=== PATIENT | female | born 1970 | race Caucasian/White ===

== ENCOUNTER 2023-06-27 16:03 | Outpatient (AMB) | payer BC, SELFPAY ==
--- NOTE | 2023-06-27 16:19 | MHC.PC.OV ---
Vital Signs 06/27/23 16:20 Height 5 ft Weight 160 lb BMI 31.2 BP 132/90 H Blood Pressure Location Rt brachial Position Sitting Pulse 96 Pulse Source Pulse Oximeter Pulse Oximetry (%) 99 Oxygen Delivery Method Room Air Intake Visit Reasons: NPV/requesting phy Intake Note: Pt is here to est care Allergies No Known Allergies [No Known Allergies*] Allergy (Unverified 06/27/23 16:21) Medication List - Last Reconciled 06/27/23 by KIRSTY Magdaleno tirzepatide (Mounjaro) 15 mg subcut QWEEK valacyclovir 1,000 mg PO DAILY Tobacco use date assessed: 06/27/23 Dental Screening Dental Screen Date: 06/27/23 Did you have a dental visit in the last 12 months?: No Did you have a dental problem in the last 6 months where you did not have access to dental care?: No Was dental information given to patient?: No HPI NPV/requesting phy HPI Details New pt is here for a PE. Will order labs. Colonoscopy is up to date according to pt. Mammo is scheduled. Has a health center manager. Pt's blood pressure is elevated today. Will have pt monitor her blood pressure at home and record readings. Denies chest pain, shortness of breath, headache, dizziness, and blurred vision. [facility] Social History Housing: House Patient Tobacco Use Status: Never used Tobacco e-Cigarette/Vaping Use: Never Used service: No Current occupational status: employed Current occupation: [employer] Current occupational exposures/hazards: No Cognitive needs: No Hearing needs: No Vision needs: No Questionnaire PHQ-9 Over the last 2 weeks, how often have you been bothered by any of the following problems? 1. Little interest or pleasure in doing things: not at all 2. Feeling down, depressed, or hopeless: not at all 3. Trouble falling or staying asleep, or sleeping too much: not at all 4. Feeling tired or having little energy: not at all 5. Poor appetite or overeating: not at all 6. Feeling bad about yourself - or that you are a failure or have let yourself or your family down: not at all 7. Trouble concentrating on things, such as reading the newspaper or watching television: not at all 8. Moving or speaking so slowly that other people could have noticed. Or the opposite - being so fidgety or restless that you have been moving around a lot more than usual: not at all 9. Thoughts that you would be better off or of hurting yourself in some way: not at all Total score: 0 Depression Screening Interpretation: Negative Depression Screening Done: Yes 79353 - PHQ-9 Billing: Yes Source: Developed by Drs. Norberto Myers, Mimi Bansal, José Luis Peng and colleagues, with an educational cristy from [employer]. Thrive Questionnaire Date Thrive assessed: 06/27/23 I am a: Patient What is your living situation today?: I have a steady place to live Within the past 12 months, did the food you bought not last and you didn't have the money to get more?: Never true Within the past 12 months, did you worry whether your food would run out before you got money to buy more?: Never true Do you have trouble paying for medicines?: No Do you have trouble getting transportation to medical appointments?: No Do you have trouble paying your heating and electricity bill?: No Do you have trouble taking care of your child, family member or friend?: No Do you have trouble with day-to-day activities such as bathing, preparing meals, shopping, managing finances, etc.?: No Are you currently unemployed and looking for a job?: No Are you interested in more education?: No Please select the resources that you would like help with: None Currently or been in a relationship where the following occur: no concerns reported THRIVE Score: 0 AUDIT C Alcohol Use Questionnaire (AUDIT-C) 1. How often do you have a drink containing alcohol?: Monthly or less 2. How many drinks containing alcohol do you have on a typical day when you are drinking?: 1 or 2 3. How often do you have six or more drinks on one occasion?: Never Total Score: 1 Score Reviewed/Action Taken: Yes RENEE-7 AMB Questionnaire RENEE-7 Date RENEE - 7 assessed: 06/27/23 Feeling nervous, anxious, or on edge: 0 = Not at all Not being able to stop or control worryin = Not at all Worrying too much about different things: 0 = Not at all Trouble relaxin = Not at all Being so restless that it is hard to sit still: 0 = Not at all Becoming easily annoyed or irritable: 0 = Not at all Feeling afraid as if something awful might happen: 0 = Not at all Total RENEE-7 score (0-4 normal; 5-9 mild; 10-14 moderate; 15-21 severe): 0 Source: Developed by Drs. Norberto Myers, Mimi Bansal, José Luis Peng and colleagues, with an educational cristy from [employer]. RENEE-7 Assessment Billing RENEE-7 Assessment Tool: RENEE-7 Assessment 52090 Review of Systems Const Denies chills and Denies fever(s) Eyes Denies blurry vision ENT Denies vertigo, Denies dizziness and Denies sore throat Card Denies chest pain at rest, Denies chest pain with activity, Denies diaphoresis, Denies dyspnea and Denies dyspnea on exertion Resp Denies cough, Denies dyspnea, Denies dyspnea on exertion and Denies wheezing GI Denies abdominal pain, Denies melena, Denies hematochezia, Denies constipation, Denies diarrhea and Denies loose stools Denies hematuria Musc Denies numbness and Denies tingling Skin/Breast Denies lesions Neuro Denies vertigo, Denies dizziness, Denies numbness and Denies tingling Psych Denies anxiety, Denies depression, Denies homicidal ideation, Denies suicidal ideation and Denies other (substance abuse) Aller/Immun Denies wheezing Physical exam (Primary Care) Vital Signs: Last Vital Signs Pulse 96 06/27/23 16:20 BP 132/90 H 06/27/23 16:20 Pulse Ox 99 06/27/23 16:20 Oxygen Delivery Method Room Air 06/27/23 16:20 BMI result Body Mass Index 31.2 Tobacco/Smoking Status: Tobacco use Status Tobacco use date assessed 06/27/23 06/27/23 16:26 Patient Tobacco Use Status Never used Tobacco 06/27/23 16:26 e-Cigarette/Vaping Use Never Used 06/27/23 16:26 PHQ-9: PHQ-9 Score PHQ-9: Total score 0 06/27/23 16:59 Depression Screening Interpretation: Negative Thrive Assessment: Date of Thrive Assessment Date Thrive assessed 06/27/23 06/27/23 16:28 Currently or been in a relationship where the following occur: no concerns reported Const General: cooperative Nutritional Appearance: obese Orientation/consciousness: patient oriented x3 HENMT Head: Yes normal to inspection, Yes normocephalic and Yes atraumatic Ears: TM's normal bilaterally Eyes General: appearance normal, both eyes and all related structures Alignment and Position: alignment normal and position normal Neck Neck: Yes normal visual inspection and Yes no lymphadenopathy Thyroid: Thyroid normal Resp Effort & Inspection: normal respiratory effort Auscultation: clear to auscultation bilaterally Cardio Rate: regular rate Rhythm: regular rhythm Heart sounds: S1 normal heart sound present, S2 normal heart sound present and no murmurs GI Palpation (GI): Soft to palpation and nontender Auscultation: normal bowel sounds Skin Other: several round lesions to back ranging from skin colored to darker, some more papular and some more macular Rashes: no rashes Neuro General: patient oriented x3, moves all extremities, no focal motor deficits and deep tendon reflexes 2+ bilaterally Romberg Test: Negative Psych Appearance: grossly normal Mental Status: mental status grossly normal Speech and movement: Normal speech and movement present Affect: normal affect Attitude: cooperative Thought process: Normal thought process present Thought content: Normal thought content present Insight: Good insight present (Psych) Judgement: Good judgement present (Psych) Assessment and Plan Assessment & Plan (1) Physical exam: Code(s): Z00.00 - Encounter for general adult medical examination without abnormal findings (2) Skin lesions, generalized: Code(s): L98.9 - Disorder of the skin and subcutaneous tissue, unspecified Plan The patient agreed to the use of a pediatric medical assistant for this encounter. Scribed for KIRSTY Garcia by Emely Masterson pediatric medical assistant, on 06/27/2023 at 16:40 EST. Orders: Orders Complete Blood Count Auto Diff Today Z00.00 - Encounter for general adult medical examination without abnormal findings Comprehensive [place]. Panel Fast Today Z00.00 - Encounter for general adult medical examination without abnormal findings TSH reflex Free T4 Today Z00.00 - Encounter for general adult medical examination without abnormal findings UA CC w/rflx Micro + Cult Today Z00.00 - Encounter for general adult medical examination without abnormal findings Lipid Panel Today Z00.00 - Encounter for general adult medical examination without abnormal findings Hemoglobin A1c Today Z00.00 - Encounter for general adult medical examination without abnormal findings Vitamin D 25-OH Total Today L98.9 - Disorder of the skin and subcutaneous tissue, unspecified Referrals Dermatology Referral L98.9 - Disorder of the skin and subcutaneous tissue, unspecified Coding Level of Care Code New Pt Prev Care 40-64y(80206) Diagnoses Physical exam Z00.00 Skin lesions, generalized L98.9 Additional Codes RENEE-7 Assessment Billing - RENEE-7 Assessment Tool: RENEE-7 Assessment 91010 ([id number])
[2023-06-27 16:20] VITALS: BP 132/90; PULSE 96; O2SAT 99; BMI 31.2
== END 2023-06-27 17:21 | disposition home or self-care (01) ==
PROVIDERS: Visit Provider Nurse Practitioner Family
DX: Z00.00 Encounter for general adult medical examination without abnormal findings (principal); L98.9 Disorder of the skin and subcutaneous tissue, unspecified
CPT/HCPCS: 99386

== ENCOUNTER 2023-07-20 07:26 | Outpatient (REF) | payer BC, SELFPAY ==
[2023-07-20 11:24] LABS: MANUAL DIFF FLAG NO
[2023-07-20 11:27] LABS: Appearance Urine Cloudy; Color Urine Yellow; Glucose Urine UA Negative (Negative); Leukocyte Esterase Urine Trace (Negative); Nitrite Urine Negative (Negative); PH 5.5 (5.0-9.0); Specific Gravity - Urine 1.025 (1.005-1.025); UMIC TRIGGER UACC YES; Urine Blood Negative (Negative); Urine Ketones Negative (Negative); Urine Protein Negative (Neg-Trace)
[2023-07-20 11:32] LABS: Basophils Percent Auto 0.4 % (0-2); Eosinophils Absolute Auto 0.4 X10*3/uL (0.0-0.4); Eosinophils Percent Auto 5.4 % (0-4); Hematocrit 40.9 % (37.0-47.0); Hemoglobin 13.4 g/dl (12.0-16.0); Imm Gran Abs Auto 0.01 X10*3/uL (0.00-0.03); Imm Gran Pct Auto 0.1 % (0.0-0.4); Lymphocytes Absolute Auto 2.4 X10*3/uL (1.2-4.9); Lymphocytes Percent Auto 32.6 % (20-40); Mean Corpuscular HGB Conc 32.8 g/dl (31.0-35.0); Mean Corpuscular Hemoglobin 30.6 pg (27.0-33.0); Mean Corpuscular Volume 93.4 fL (80.0-98.0); Mean Platelet Volume 10.2 fL (9.4-12.3); Monocytes Absolute Auto 0.5 X10*3/uL (0.1-1.2); Monocytes Percent Auto 7.3 % (2-11); Neutrophils Absolute Auto 3.9 x10*3/uL (2.0-8.3); Neutrophils Percent Auto 54.2 % (45-73); Platelet Count 291 X10*3/uL (160-400); Red Blood Count 4.38 X10*6/uL (4.20-5.50); Red Cell Distribution Width 14.8 % (11.0-16.0); White Blood Count 7.3 X10*3/uL (4.8-10.8)
[2023-07-20 11:36] LABS: Bacteria Urine 4+ (None Seen); Hyaline Casts Urine 0-2 /LPF (0-2); RBC Urine 0-2 /HPF (0-2); UACC Culture Trigger YES
[2023-07-20 11:52] LABS: Estimated Average Glucose 85 mg/dL; Hemoglobin A1c % 4.6 % (<6.0)
[2023-07-20 12:10] LABS: Alanine Aminotransferase 42 U/L (0-31); Albumin Level 4.1 g/dL (3.5-5.0); Alkaline Phosphatase 67 U/L (39-117); Anion Gap 8 (12-20); Aspartate Amino Transferase 21 U/L (5-31); Bilirubin Total 0.2 mg/dL (0.0-1.0); Blood Urea Nitrogen 16 mg/dL (9-16); Calcium 9.1 mg/dL (8.4-10.2); Carbon Dioxide 29 mmol/L (22-29); Chloride 106 mmol/L (96-108); Cholesterol 208 mg/dL (<200); Estimated Glomerular Filt Rate > 60; Glucose Fasting 85 mg/dL (60-99); HDL Cholesterol 58 mg/dL (>40); LDL Cholesterol Calculated 130 mg/dL (<100); Potassium 4.1 mmol/L (3.3-5.1); Sodium 139 mmol/L (135-145); Total Protein 6.9 g/dL (6.5-8.0); Triglycerides 100 mg/dL (<150)
[2023-07-20 12:15] LABS: TSH reflex Free T4 2.25 uIU/mL (0.32-4.0); Vitamin D 25-OH Total 38.4 ng/mL (>30)
== END 2023-07-20 07:27 | disposition home or self-care (01) ==
LOC: HO.HMGCLDS 07:26
PROVIDERS: PCP Nurse Practitioner Family; Visit Provider Nurse Practitioner Family
DX: Z00.00 Encounter for general adult medical examination without abnormal findings (principal); L98.9 Disorder of the skin and subcutaneous tissue, unspecified; R82.90 Unspecified abnormal findings in urine
CPT/HCPCS: 36415; 80053; 80061; 81001; 82306; 83036; 84443; 85025; 87086

== ENCOUNTER 2023-08-02 09:47 | Outpatient (REF) | payer BC, SELFPAY ==
--- NOTE | ~2023-08-02 | US_ITS ---
EXAMINATION: US ABDOMEN COMPLETE CLINICAL INFORMATION: Elevated liver enzymes. COMPARISON: CT abdomen and pelvis 09/26/2018. TECHNIQUE: Real-time imaging of the abdominal viscera. Limited visualization due to bowel gas. FINDINGS: PANCREAS: Limited visualization of pancreatic tail and head. Imaged portion of pancreatic body is unremarkable. ABDOMINAL AORTA: Nonaneurysmal. INFERIOR VENA CAVA: Visualized portions are normal. LIVER: Increased hepatic parenchymal heterogeneity and echogenicity could be associated with hepatocellular disease/hepatic steatosis and substantially limits visualization. Correlation with liver function tests and clinical exam recommended to determine further management. GALLBLADDER: Gallbladder wall thickness of 2 mm. Echogenic shadowing areas in the region of the gallbladder fundus may represent adenomyomatosis, although limited visualization. COMMON BILE DUCT: Normal in caliber measuring 0.6 cm in diameter. RIGHT KIDNEY: A 4 mm lower pole calculus. No hydronephrosis. Possible duplicated renal collecting system. Limited visualization. The kidney measures 14.1 cm in maximum dimension. LEFT KIDNEY: No hydronephrosis. No renal calculi. Limited visualization. No hydronephrosis or renal calculi. Possible duplicated renal collecting system with mild dilatation. Limited visualization. Lower pole 0.8 cm cyst. Upper pole 1.1 cm cyst with possible punctate mural calcification. Mid pole 1.8 cm cyst with septations versus group of parapelvic cysts. The kidney measures 12.6 cm in maximum dimension. SPLEEN: Normal. The spleen measures 10.1 cm in maximum dimension. FREE FLUID: None. US/US abdomen complete IMPRESSION: 1. Increased hepatic parenchymal heterogeneity and echogenicity could be associated with hepatocellular disease/hepatic steatosis and substantially limits visualization. Correlation with liver function tests and clinical exam recommended to determine further management. 2. Echogenic shadowing areas in the region of the gallbladder fundus may represent adenomyomatosis, although limited visualization. 3. Left renal cysts, some of which are complex. 4. Possible duplicated bilateral renal collecting systems with mild dilatation of the left renal collecting system. Right renal 4 mm calculus. No left renal calculi appreciated. 5. CT scan with intravenous contrast employing renal mass protocol recommended for further characterization.
== END 2023-08-02 09:48 | disposition home or self-care (01) ==
LOC: HO.HMGCX 09:47
PROVIDERS: PCP Nurse Practitioner Family; Visit Provider Nurse Practitioner Family
DX: R74.8 Abnormal levels of other serum enzymes (principal)
CPT/HCPCS: 76700

== ENCOUNTER 2023-09-30 08:14 | Outpatient (REF) | payer BC, SELFPAY ==
--- NOTE | ~2023-09-30 | CT_ITS ---
EXAMINATION: CT ABDOMEN AND PELVIS WITHOUT AND WITH CONTRAST CLINICAL INFORMATION: Renal cyst. COMPARISON: Abdominal ultrasound 08/02/2023. Abdominal CT 09/26/2018. TECHNIQUE: Multidetector volumetric imaging was performed of the abdomen and pelvis before and after the IV administration of 85 mL of Omnipaque 350 intravenous contrast. Sagittal and coronal reformatted images were obtained on the technologist's workstation. This CT examination was performed using dose optimization techniques as appropriate, variously including the following: *Automated exposure control *Adjustment of mA and/or kV according to patient size (this includes techniques or standardized protocols for targeted exams where dose is matched to indication/reason for exam; i.e. extremities or head) *Use of iterative reconstruction technique DLP: 669 mGy-cm FINDINGS: LUNG BASES: The visualized lung bases are unremarkable. LIVER, GALLBLADDER, AND BILIARY TREE: The liver is normal in size, shape, and attenuation. No focal hepatic lesion or biliary ductal dilatation is present. The gallbladder is unremarkable with no evidence of radiopaque gallstones, gallbladder wall thickening, or obvious pericholecystic inflammatory changes. PANCREAS: No discrete pancreatic mass. No pancreatic ductal dilatation. SPLEEN: The spleen appears normal. ADRENAL GLANDS: No adrenal mass. KIDNEYS AND URETERS: 1 cm simple cyst in the medial right kidney. 1 cm simple cyst in the upper pole of the left kidney. 0.7 cm hypodensity in the medial left upper kidney is too small to characterize but likely benign and no follow-up imaging is recommended. 0.8 cm simple cyst in the lateral left mid kidney. Bifid left collecting system. No hydronephrosis. No nephrolithiasis. BLADDER: Unremarkable GASTROINTESTINAL TRACT: Small and large bowel are normal in caliber. Appendectomy. ABDOMINAL WALL: Small fat-containing umbilical hernia. LYMPH NODES: No lymphadenopathy. VASCULAR: No aortic aneurysm. PELVIC VISCERA: Unremarkable. No pelvic mass. OSSEOUS STRUCTURES: Moderate degenerative disc disease at L5-S1. CT/CT abdomen pelvis wo/w IV con IMPRESSION: Simple cysts in the kidneys for which no imaging follow-up is recommended. Fleischner guidelines were followed.
[2023-09-30] MEDS: iohexoL 350 MG/ML 100 ML INFUS..BTL 85 ML IV (10:34)
[2023-09-30 11:43] LABS: Creatinine POC 0.8 mg/dL (0.5-1.4); GFR POC > 60
== END 2023-09-30 08:15 | disposition home or self-care (01) ==
LOC: HO.CT 08:14
PROVIDERS: PCP Nurse Practitioner Family; Visit Provider Nurse Practitioner Family
DX: N28.1 Cyst of kidney, acquired (principal); R93.5 Abnormal findings on diagnostic imaging of other abdominal regions, including retroperitoneum
CPT/HCPCS: 74178; 82565; Q9967

== ENCOUNTER 2023-12-24 09:32 | Outpatient (AMB) | payer BC, SELFPAY ==
--- NOTE | 2023-12-24 09:40 | MHC.PC.OV ---
Vital Signs 12/24/23 09:42 Height 5 ft Weight 148 lb 2 oz BMI 28.9 BP 140/100 H Blood Pressure Location Rt brachial Position Sitting Pulse 88 Pulse Source Pulse Oximeter Pulse Oximetry (%) 98 Oxygen Delivery Method Room Air Intake Visit Reasons: 6 month followup Intake Note: Patient here for HTN f/u. Allergies No Known Allergies [No Known Allergies*] Allergy (Unverified 12/24/23 09:43) Medication List - Last Reconciled 12/24/23 by KIRSTY Magdaleno tirzepatide (weight loss) (Zepbound) 15 mg subcut QWEEK valacyclovir 1,000 mg PO DAILY Tobacco use date assessed: 06/27/23 Dental Screening Dental Screen Date: 06/27/23 HPI 6 month followup HPI Details Pt's blood pressure is elevated today. She reports that it is elevated similarly at home. Will start lisinopril-hydrochlorothiazide 10-12.5mg. Will have pt continue to monitor her blood pressure at home. Denies chest pain, shortness of breath, headache, dizziness, and blurred vision. Encouraged her to get labs approx 2-3 weeks after starting med, and to drop off BPs in the next month for me to go over. [facility] Medical History (Updated 12/24/23 @ 10:07 by KIRSTY Magdaleno) H/O simple renal cyst Social History Housing: House Patient Tobacco Use Status: Never used Tobacco e-Cigarette/Vaping Use: Never Used service: No Current occupational status: employed Current occupation: [employer] Current occupational exposures/hazards: No Cognitive needs: No Hearing needs: No Vision needs: No Questionnaire PHQ-9 Over the last 2 weeks, how often have you been bothered by any of the following problems? 1. Little interest or pleasure in doing things: not at all 2. Feeling down, depressed, or hopeless: not at all 3. Trouble falling or staying asleep, or sleeping too much: not at all 4. Feeling tired or having little energy: not at all 5. Poor appetite or overeating: not at all 6. Feeling bad about yourself - or that you are a failure or have let yourself or your family down: not at all 7. Trouble concentrating on things, such as reading the newspaper or watching television: not at all 8. Moving or speaking so slowly that other people could have noticed. Or the opposite - being so fidgety or restless that you have been moving around a lot more than usual: not at all 9. Thoughts that you would be better off or of hurting yourself in some way: not at all Total score: 0 Depression Screening Interpretation: Negative Depression Screening Done: Yes 76477 - PHQ-9 Billing: Yes Source: Developed by Drs. Norberto Myers, Mimi Bansal, José Luis Peng and colleagues, with an educational cristy from [employer]. Thrive Questionnaire Date Thrive assessed: 12/17/23 I am a: Patient What is your living situation today?: I have a steady place to live Within the past 12 months, did the food you bought not last and you didn't have the money to get more?: Never true Within the past 12 months, did you worry whether your food would run out before you got money to buy more?: Never true Do you have trouble paying for medicines?: No Do you have trouble getting transportation to medical appointments?: No Do you have trouble paying your heating and electricity bill?: No Do you have trouble taking care of your child, family member or friend?: No Do you have trouble with day-to-day activities such as bathing, preparing meals, shopping, managing finances, etc.?: No Are you currently unemployed and looking for a job?: No Are you interested in more education?: No Please select the resources that you would like help with: Housing/Care Home Currently or been in a relationship where the following occur: No concerns reported THRIVE Score: 0 AUDIT C Alcohol Use Questionnaire (AUDIT-C) 1. How often do you have a drink containing alcohol?: 2-4 times a month 2. How many drinks containing alcohol do you have on a typical day when you are drinking?: 1 or 2 3. How often do you have six or more drinks on one occasion?: Never Total Score: 2 RENEE-7 AMB Questionnaire RENEE-7 Date RENEE - 7 assessed: 06/27/23 Feeling nervous, anxious, or on edge: 0 = Not at all Not being able to stop or control worryin = Not at all Worrying too much about different things: 0 = Not at all Trouble relaxin = Not at all Being so restless that it is hard to sit still: 0 = Not at all Becoming easily annoyed or irritable: 0 = Not at all Feeling afraid as if something awful might happen: 0 = Not at all Total RENEE-7 score (0-4 normal; 5-9 mild; 10-14 moderate; 15-21 severe): 0 Source: Developed by Drs. Norberto Myers, Mimi Bansal, José Luis Peng and colleagues, with an educational cristy from [employer]. RENEE-7 Assessment Billing RENEE-7 Assessment Tool: RENEE-7 Assessment 63095 Review of Systems Const Reports as per HPI Physical exam (Primary Care) Vital Signs: Last Vital Signs Pulse 88 12/24/23 09:42 BP 140/100 H 12/24/23 09:42 Pulse Ox 98 12/24/23 09:42 Oxygen Delivery Method Room Air 12/24/23 09:42 BMI result Body Mass Index 28.9 Tobacco/Smoking Status: Tobacco use Status Tobacco use date assessed 06/27/23 12/24/23 09:41 Patient Tobacco Use Status Never used Tobacco 12/24/23 09:41 e-Cigarette/Vaping Use Never Used 12/24/23 09:41 PHQ-9: PHQ-9 Score PHQ-9: Total score 0 12/24/23 09:46 Depression Screening Interpretation: Negative Thrive Assessment: Date of Thrive Assessment Date Thrive assessed 12/17/23 12/24/23 09:41 Currently or been in a relationship where the following occur: No concerns reported Const General: cooperative Orientation/consciousness: patient oriented x3 Resp Effort & Inspection: normal respiratory effort Auscultation: clear to auscultation bilaterally Cardio Rate: regular rate Rhythm: regular rhythm Heart sounds: S1 normal heart sound present and S2 normal heart sound present Neuro General: patient oriented x3 Psych Appearance: grossly normal Mental Status: mental status grossly normal Speech and movement: Normal speech and movement present Affect: normal affect Attitude: cooperative Thought process: Normal thought process present Thought content: Normal thought content present Insight: Good insight present (Psych) Judgement: Good judgement present (Psych) Assessment and Plan Assessment & Plan (1) HTN (hypertension): Code(s): I10 - Essential (primary) hypertension Plan: starting medication, lab work encouraged Plan The patient agreed to the use of a medical research associate for this encounter. Scribed for KIRSTY Garcia by Emely Masterson medical research associate, on 12/24/2023 at 10:00 EST. Orders: Orders Comprehensive [place]. Panel Fast Today I10 - Essential (primary) hypertension Lipid Panel Today I10 - Essential (primary) hypertension Medications: New lisinopril-hydrochlorothiazide 10-12.5 mg 1 tab PO DAILY 30 days 30 tabs 2RF Coding Level of Care Code Est Pt Level 3 (14127) Diagnoses HTN (hypertension) I10 Additional Codes RENEE-7 Assessment Billing - RENEE-7 Assessment Tool: RENEE-7 Assessment 95083 ([id number])
[2023-12-24 09:42] VITALS: BP 140/100; PULSE 88; O2SAT 98; BMI 28.9
== END 2023-12-24 10:19 | disposition home or self-care (01) ==
PROVIDERS: Visit Provider Nurse Practitioner Family
DX: I10 Essential (primary) hypertension (principal)
CPT/HCPCS: 99213

== ENCOUNTER 2024-11-30 13:41 | Outpatient (AMB) | payer BC, SELFPAY ==
[2024-11-30 13:46] VITALS: BP 130/88; PULSE 95; O2SAT 96; BMI 26.8
--- NOTE | 2024-11-30 13:46 | A.OFFPC_ITS ---
Vital Signs 11/30/24 13:46 Height 5 ft Weight 137 lb BMI 26.8 BP 130/88 Blood Pressure Location Lt brachial Position Sitting Pulse 95 Pulse Source Pulse Oximeter Pulse Oximetry (%) 96 Oxygen Delivery Method Room Air Intake Visit Reasons: Annual PE R D Intern Required: No Allergies No Known Allergies (No Known Allergies*) Allergy (Verified 11/30/24 14:03) Medication List - Last Reconciled 11/30/24 by Preston Pickett, [facility] lisinopril-hydrochlorothiazide 10-12.5 mg 1 tab PO DAILY 30 days tirzepatide (weight loss) (Zepbound) 15 mg subcut QWEEK valacyclovir 1,000 mg PO DAILY Tobacco use date assessed: 11/30/24 Dental Screening Dental Screen Date: 11/30/24 Did you have a dental visit in the last 12 months?: Yes Did you have a dental problem in the last 6 months where you did not have access to dental care?: No Was dental information given to patient?: Patient has dentist HPI Annual PE HPI Details History of Present Illness The patient is a 54-year-old female presenting for preventative care, including mammogram screening, dermatology referral, and gynecological referral for Pap smear. She is aware of her need for a mammogram and has been previously referred to dermatology due to issues with her insurance not processing the referral correctly. She has fair skin with freckles and birthmarks, necessitating dermatological evaluation. 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 She reports doing well otherwise, denying any chest pain, dyspnea, abdominal pain, gastrointestinal issues, urinary issues, or psychiatric symptoms. Health Maintenance - Mammogram screening ordered - Dermatology referral for skin evaluati on due to fair skin and freckles - Gynecological referral for Pap smear Social History Review of Systems - Cardiovascular: Denies chest pain - Respiratory: Denies dyspnea - Gastrointestinal: Denies abdominal stephen n, blood in stool, constipation, diarrhea - Genitourinary: Denies urinary issues - Psychiatric: Denies suicidal ideation or homicidal ideation Physical Exam General: Cooperative, healthy appearing, comfortable, no acute distress and well developed Orientation: Patient oriented x3 Limitations: No limitations Head: Normal to inspection Ears: Hearing grossly normal bilaterally Nose: Normal external nose present Face and sinus: Normal facial exam Eyes: Appearance normal, both eyes and all related structures Neck: Normal visual inspection and Yes full ROM Respiratory: Normal respiratory effort and able to speak in complete sentences. Clear to auscultation bilaterally Cardiovascular: Regular rate and rhythm. Normal S1 and S2 GI: Normal to inspection. Soft to palpation and nontender Skin: Fair skin, some freckles, and birthmarks/moles on her back Neuro: Patient oriented x3 Extremities: Normal to inspection Results Plan The patient will have a mammogram screening ordered to address her preventative care needs. A dermatology referral will be placed again due to previous issues with insurance processing, to evaluate her fair skin, freckles, and birthmarks. Additionally, a referral to a new piping supervisor will be made for routine Pap smears. The patient is advised to complete lab work in the near future as part of her ongoing health maintenance. Discussion Notes I discussed with the patient the importance of completing her mammogram screening and the need for dermatological evaluation due to her fair skin and freckles. We also talked about the necessity of finding a new piping supervisor for routine Pap smears. I advised her to complete her lab work soon to ensure comprehensive health maintenance. Patient Instructions - Schedule and complete mammogram screen ing. - Follow up with dermatology for skin ev aluation. - Find a new piping supervisor and schedule a Pap smear. - Complete lab work as soon as possible. [facility] Medical History H/O simple renal cyst Social History Housing: House Patient Tobacco Use Status: Never used Tobacco e-Cigarette/Vaping Use: Never Used service: No Current occupational status: employed Current occupation: [employer] Current occupational exposures/hazards: No Cognitive needs: No Hearing needs: No Vision needs: No Questionnaire PHQ-9 Over the last 2 weeks, how often have you been bothered by any of the following problems? 1. Little interest or pleasure in doing things: not at all 2. Feeling down, depressed, or hopeless: not at all 3. Trouble falling or staying asleep, or sleeping too much: several days 4. Feeling tired or having little energy: not at all 5. Poor appetite or overeating: not at all 6. Feeling bad about yourself - or that you are a failure or have let yourself or your family down: not at all 7. Trouble concentrating on things, such as reading the newspaper or watching television: not at all 8. Moving or speaking so slowly that other people could have noticed. Or the opposite - being so fidgety or restless that you have been moving around a lot more than usual: not at all 9. Thoughts that you would be better off or of hurting yourself in some way: not at all Total score: 1 Depression Screening Interpretation: Negative Depression Screening Done: Yes 43232 - PHQ-9 Billing: Yes Source: Developed by Drs. Norberto Myers, Mimi Bansal, José Luis Peng and colleagues, with an educational cristy from [employer]. Thrive Questionnaire Date Thrive assessed: 11/30/24 I am a: Patient What is your living situation today?: I have a steady place to live Within the past 12 months, did the food you bought not last and you didn't have the money to get more?: Never true Within the past 12 months, did you worry whether your food would run out before you got money to buy more?: Never true Do you have trouble paying for medicines?: No Do you have trouble getting transportation to medical appointments?: No Do you have trouble paying your heating and electricity bill?: No Do you have trouble taking care of your child, family member or friend?: No Do you have trouble with day-to-day activities such as bathing, preparing meals, shopping, managing finances, etc.?: No Are you currently unemployed and looking for a job?: No Are you interested in more education?: No Please select the resources that you would like help with: None Currently or been in a relationship where the following occur: No concerns reported THRIVE Score: 0 AUDIT C Alcohol Use Questionnaire (AUDIT-C) 1. How often do you have a drink containing alcohol?: 2-4 times a month 2. How many drinks containing alcohol do you have on a typical day when you are drinking?: 1 or 2 3. How often do you have six or more drinks on one occasion?: Never Total Score: 2 Score Reviewed/Action Taken: Yes RENEE-7 AMB Questionnaire RENEE-7 Date RENEE - 7 assessed: 11/30/24 Feeling nervous, anxious, or on edge: 0 = Not at all Not being able to stop or control worryin = Not at all Worrying too much about different things: 0 = Not at all Trouble relaxin = Not at all Being so restless that it is hard to sit still: 0 = Not at all Becoming easily annoyed or irritable: 0 = Not at all Feeling afraid as if something awful might happen: 0 = Not at all Total RENEE-7 score (0-4 normal; 5-9 mild; 10-14 moderate; 15-21 severe): 0 Source: Developed by Drs. Norberto Myers, Mimi Bansal, José Luis Peng and colleagues, with an educational cristy from [employer]. RENEE-7 Assessment Billing RENEE-7 Assessment Tool: RENEE-7 Assessment 04505 Physical exam (Primary Care) Tobacco/Smoking Status: Tobacco use Status Tobacco use date assessed 11/30/24 11/30/24 13:47 Patient Tobacco Use Status Never used Tobacco 11/30/24 13:46 e-Cigarette/Vaping Use Never Used 11/30/24 13:46 PHQ-9: PHQ-9 Score PHQ-9: Total score 1 11/30/24 13:47 Depression Screening Interpretation: Negative Thrive Assessment: Date of Thrive Assessment Date Thrive assessed 11/30/24 11/30/24 13:47 Currently or been in a relationship where the following occur: No concerns reported Coding Level of Care Code Est Pt Prev Care 40-64y(89444) Diagnoses Vitamin D deficiency E55.9 Physical exam Z00.00 Skin lesions, generalized L98.9 Screening for cervical cancer Z12.4 Additional Codes PHQ-9 - 04397 - PHQ-9 Billing: Yes ([id number]) RENEE-7 Assessment Billing - RENEE-7 Assessment Tool: RENEE-7 Assessment 37137 ([id number]) Assessment & Plan Assessment & Plan (1) Vitamin D deficiency: Code(s): E55.9 - Vitamin D deficiency, unspecified Category: Medical (2) Physical exam: Code(s): Z00.00 - Encounter for general adult medical examination without abnormal findings Category: Medical (3) Skin lesions, generalized: Code(s): L98.9 - Disorder of the skin and subcutaneous tissue, unspecified Category: Medical (4) Screening for cervical cancer: Code(s): Z12.4 - Encounter for screening for malignant neoplasm of cervix Category: Medical Plan . Orders: Orders Complete Blood Count Auto Diff Today Z00.00 - Encounter for general adult medical examination without abnormal findings Comprehensive [place]. Panel Fast Today Z00.00 - Encounter for general adult medical examination without abnormal findings Vitamin D 25-OH Total Today E55.9 - Vitamin D deficiency, unspecified MM screening mammo BI Today Z12.31 - Encounter for screening mammogram for malignant neoplasm of breast TSH reflex Free T4 Today Z00.00 - Encounter for general adult medical examination without abnormal findings UA CC w/rflx Micro + Cult Today Z00.00 - Encounter for general adult medical examination without abnormal findings Lipid Panel Today Z00.00 - Encounter for general adult medical examination without abnormal findings Referrals Dermatology Referral L98.9 - Disorder of the skin and subcutaneous tissue, unspecified TOOL PLANNER Referral Z12.4 - Encounter for screening for malignant neoplasm of cervix
--- OUTSIDE RECORDS SUMMARY | 2024-11-30 14:11 | XMS_ITS | Data Portability ---
Author Organization [facility] , Main Office Address [address] [place] [address], Third Floor, [place] [address] Assessment No assessment recorded. Plan of Treatment Reminders Order Date Submit Date Provider Last Modified By Organization Details Last Modified Time Details Appointments None recorded. Lab None recorded. Referral None recorded. Procedures None recorded. Surgeries None recorded. Imaging None recorded. Medication Orders Zepbound 15 mg/0.5 mL subcutaneou s pen injector 2024 025 [facility] [address] [place] [address], [address], 13:49:13 Zepbound 15 mg/0.5 mL subcutaneou s pen injector 2024 025 [facility], [address] [place] [address], [address], 19:12:26 Zepbound 15 mg/0.5 mL subcutaneou s pen injector 2024 025 [facility] [address] [place] [address], [address], 5 16:09:50 Zepbound 15 mg/0.5 mL subcutaneou s pen injector 2024 025 [facility] [address], [address] [place] [address], [address], 5 09:19:42 Zepbound 15 mg/0.5 mL subcutaneou s pen injector 2024 025 [facility], [address] [place] [address], [place], [address], 5 11:52:58 Patient TargetsNo targets recorded. Patient InstructionsNo instructions recorded. Reason for Referral None Reported. Problems Name Problem SNOMED Code Status Onset Date Resolution Date Notes Provider Name and Address Organization Details Recorded Time Body mass index 30+ - obesity 574251748 Completed 202111/09/2023 Not Available [facility] 4 09:59:06 Appendec shanel Active 2021 Not Available [facility] 2 13:57:20 Hypercho lesterol emia 50561967 Active 2022 Not Available [facility] 3 20:48:18 Allergic rhinitis 65344559 Active 2022 Not Available [facility] 3 20:48:18 Body mass index 40+ - severely obese 978131977 Active 2022 starting BMI 42 Chriss Encinas NP [address] [facility],,[facility], [facility], [place], [address] , [facility] - [facility] 3 12:44:35 Hysterec shanel Active 2022 Not Available [facility] 3 11:19:46 Body mass index 25-29 - overweig ht 153230808 Active 2023 Not Available [facility] 4 09:59:06 Hyperten sive disorder 44800357 Active 2023 Not Available [facility] 4 14:05:40 Problem Notes None recorded. Medical Equipment None Reported. Allergies No known drug allergies Medications Name Sig Start Date Stop Date Status Note LastModified by Organization Details LastModified Time tretinoin 0.1 % topical cream Start with applying a thin layer topicall y to the affected three times weekly at bedtime and increase to daily, as tolerate d 2023 active Quantity : 45 Pharmacy : [facility] Not Available Not Available Not Available valacyclo vir 1 gram tablet Take 1 tablet every day by oral route for 90 days. 2023 active Not Available Not Available Not Avai lable lisinopri l active Not Available Not Available Not Available Mounjaro 7.5 mg/0.5 mL subcutane ous pen injector Inject 7.5 mg subcutan eously once weekly. 07/03 completed Not Available Not Available Not Available Mounjaro 5 mg/0.5 mL subcutane ous pen injector Inject 5 mg subcutan eously once weekly. 05/03 completed Not Available Not Available Not Available Mounjaro 15 mg/0.5 mL subcutane ous pen injector Inject 15 mg every week by subcutan eous route for 28 days. 05/08 completed Not Available Not Available Not Available Mounjaro 10 mg/0.5 mL subcutane ous pen injector Inject 10 mg every week by subcutan eous route for 28 days. 07/03 completed Quantity : 4 Pharm[facility] : [id number] [place] [address] [address] Not Available Not Available Not Available Mounjaro 12.5 mg/0.5 mL subcutane ous pen injector Inject 12.5 mg every week by subcutan eous route for 28 days. 02/26 completed Quantity : 4 Pharmacy : [facility] [id number] [facility] [id number] Not Available Not Available Not Available Mounjaro 2.5 mg/0.5 mL subcutane ous pen injector 05/03 completed Not Available Not Available Not Available Zepbound 15 mg/0.5 mL subcutane ous pen injector Inject 15 mg every week by subcutan eous route for 28 days. 2024 active Not Available Not Available Not Avai lable Zepbound 12.5 mg/0.5 mL subcutane ous pen injector Inject 12.5 mg every week by subcutan eous route for 28 days. 01/06 completed Quantity : 4 Pharmacy : [facility] [id number] [facility] [id number] Not Available Not Available Not Available Vitals None Recorded Social History None recorded. Functional Status None recorded. Mental Status None recorded. Family History Nothing Reported. Medical History No medical history recorded. Gynecological HistoryNo gynecological history recorded. Obstetrics History GPAL:G 0 P 0 0 0 0 Past Encounters Encounter ID Performer Location Encounter Start Date Encounter Closed Date Diagnosis/Indication Diagnosis SNOMED-CT Code Diagnosis ICD10 Code Diagnosis Note [id number] GUERO ZHANG NP Main Office [address] [place] [address],,[place] [address] 04/04/2022 12:19:54 04/04/2022 20:31:54 Body mass index 30+ - obesity 276257507 Z68.39 [id number] RAMONITA QUINTANA NP, S Main Office [address] [place] [address],,[place] [address] 05/03/2022 18:01:02 05/03/2022 19:49:40 Body mass index 30+ - obesity 291249848 Z68.39 [id number] GUERO ZHANG NP Main Office [address] [place] [address],,[place] [address] 05/31/2022 10:45:47 06/01/2022 16:19:36 Obesity 747346235 E66.9 [id number] RAMONITA QUINTANA NP, S Main Office [address] [place] [address],,[place] [address] 07/03/2022 08:54:01 07/03/2022 10:31:25 Body mass index 30+ - obesity 190670880 Z68.32 [id number] RAMONITA QUINTANA NP, S Main Office [address] [place] [address],,[place] [address] 07/31/2022 09:12:14 07/31/2022 13:00:15 Obesity 231876362 E66.9 [id number] HARJIT LONG NP Main Office [address] [place] [address],,[place] [address] 10/22/2022 07:04:12 10/22/2022 10:29:45 Obesity 030171156 E66.9 [id number] EFRA ARRINGTON Main Office [address] [place] [address],,[place] [address] 11/29/2022 21:03:35 11/30/2022 10:46:08 Body mass index 30+ - obesity 442955774 Z68.30 [id number] Chriss Encinas NP Main Office [address] [place] [address] Third Floor,,[place] [address] 02/26/2023 12:02:29 02/26/2023 12:44:46 Body mass index 40+ - severely obese 854210541 Z68.41 [id number] Germania Casper MD Main Office [address] [place] [address] Floor,,[place] [address] 04/11/2023 11:19:43 04/11/2023 14:08:47 Body mass index 30+ - obesity 763301174 Z68.30 [id number] Chriss Encinas NP Main Office [address] [place] [address] Floor,,[place] [address] 05/08/2023 12:16:12 05/08/2023 13:57:00 Body mass index 40+ - severely obese 052457540 Z68.41 [id number] ALANA NICKERSON NP Main Office [address] [place] [address] Floor,,[place] [address] 07/05/2023 14:34:29 07/05/2023 15:23:02 Body mass index 40+ - severely obese 526703128 Z68.41 [id number] ALANA NICKERSON NP Main Office [address] [place] [address] Floor,,[place] [address] 08/08/2023 10:49:33 08/08/2023 23:11:24 Body mass index 40+ - severely obese 668637849 Z68.42 [id number] ERMA MCKAY NP Main Office [address] [place] [address] Floor,,[place] [address] 09/06/2023 16:20:47 09/14/2023 13:16:19 Intrinsic aging of skin 271649010 L90.8 [id number] ERMA MCKAY NP Main Office [address] [place] [address] Third Floor,,[place] [address] 09/12/2023 15:55:39 09/13/2023 07:08:41 Obesity 344606118 E66.8 [id number] Aris Bansal NP Main Office [address] [facility] Floor,,[place] [address] 09/12/2023 16:08:56 09/13/2023 07:12:55 Genital herpes simplex 92768089 A60.04 [id number] Chriss Encinas NP Main Office [address] [place] [address] Third Floor,,[place] [address] 10/04/2023 20:22:15 10/08/2023 19:59:46 Obesity 334896516 E66.9 [id number] ALANA NICKERSON NP Main Office [address] [place] [address] Floor,,[place] [address] 11/09/2023 10:04:12 11/09/2023 13:43:45 Obesity 623020835 E66.9 [id number] ALANA NICKERSON NP Main Office [address] [place] [address] Floor,,[place] [address] 12/12/2023 15:44:56 12/12/2023 22:51:28 Obesity 967764654 E66.9 [id number] Chriss Encinas NP Main Office [address] [place] [address] Floor,,[place] [address] 01/07/2024 12:15:52 01/07/2024 15:15:54 Obesity 035339580 E66.9 [id number] Chriss Encinas NP Main Office [address] [place] [address] Floor,,[place] [address] 02/09/2024 11:56:37 02/09/2024 13:52:22 Obesity 655070740 E66.9 [id number] Deb Tejeda NP Main Office [address] [place] [address] Floor,,[place] [address] 03/08/2024 18:26:31 03/08/2024 19:23:28 Obesity 294233520 E66.9 [id number] Chriss Encinas NP Main Office [address] [place] [address] Third Floor,,[place] [address] 05/06/2024 14:05:37 05/06/2024 14:19:34 Obesity 325065244 E66.9 [id number] Chriss Encinas NP Main Office [address] [facility] Floor,,[place] [address] 06/08/2024 10:21:38 06/08/2024 11:52:59 Obesity 294186970 E66.9 [id number] Chriss Encinas NP Main Office [address] [facility] [place] Third Floor,,[place] [address] 07/07/2024 20:11:14 07/14/2024 09:19:32 Obesity 802438280 E66.9 [id number] ERMA MCKAY NP Main Office [address] [facility] Floor,,[place] [address] 08/07/2024 16:02:13 08/07/2024 16:10:03 Obesity 815932021 E66.9 [id number] Chriss Encinas NP Main Office [address] [facility] Floor,,[place] [address] 09/09/2024 15:03:49 09/09/2024 19:12:25 Obesity 094710944 E66.9 [id number] ERMA MCKAY NP Main Office [address] [facility],,[place] [address] 10/09/2024 13:07:48 10/09/2024 13:49:16 Obesity 656490013 E66.9 Health Concerns Section Related Observation LastModified by Organization Detai ls LastModified Time None Recorded Concern Status LastModified by Organization Details LastModified Time None Recorded Advance Directives Directive None Recorded Payers Insurance Date Sequence Insurance Name Policy Number Policy Huertas Covered Member ID Huertas Member ID Guarantor Name 05/08/2023 1 *SELF PAY* Jojo P Deorocki 1 Jojo P Deorocki 05/08/2023 1 *SELF PAY* Jojo P Deorocki 1 Jojo P Deorocki 05/08/2023 1 *SELF PAY* Jojo P Deorocki 1 Jojo P Deorocki 05/08/2023 1 *SELF PAY* Jojo P Deorocki 1 Jojo P Deorocki 05/08/2023 1 *SELF PAY* Jojo P Deorocki 1 Jojo P Deorocki 05/08/2023 1 *SELF PAY* Jojo P Deorocki 1 Jojo P Deorocki 05/08/2023 1 *SELF PAY* Jojo P Deorocki 1 Jojo P Deorocki 05/08/2023 1 *SELF PAY* Jojo P Deorocki 1 Jojo P Deorocki 05/08/2023 1 *SELF PAY* Jojo P Deorocki 1 Jojo P Deorocki 05/08/2023 1 *SELF PAY* Jojo P Deorocki 1 Jojo P Deorocki 05/08/2023 1 *SELF PAY* Jojo P Deorocki 1 Jojo P Deorocki 05/08/2023 1 *SELF PAY* Jojo P Deorocki 1 Jojo P Deorocki 05/08/2023 1 *SELF PAY* Jojo P Deorocki 1 Jojo P Deorocki 05/08/2023 1 *SELF PAY* Jojo P Deorocki 1 Jojo P Deorocki 05/08/2023 1 *SELF PAY* Jojo P Deorocki 1 Jojo P Deorocki 05/08/2023 1 *SELF PAY* Jojo P Deorocki 1 Jojo P Deorocki 05/08/2023 1 *SELF PAY* Jojo P Deorocki 1 Jojo P Deorocki 05/08/2023 1 *SELF PAY* Jojo P Deorocki 1 Jojo P Deorocki 05/08/2023 1 *SELF PAY* Jojo P Deorocki 1 Jojo P Deorocki 05/08/2023 1 *SELF PAY* Jojo P Deorocki 1 Jojo P Deorocki 05/08/2023 1 *SELF PAY* Jojo P Deorocki 1 Jojo P Deorocki 05/08/2023 1 *SELF PAY* Jojo P Deorocki 1 Jojo P Deorocki 05/08/2023 1 *SELF PAY* Jojo P Deorocki 1 Jojo P Deorocki 05/08/2023 1 *SELF PAY* Jojo P Deorocki 1 Jojo P Deorocki 05/08/2023 1 *SELF PAY* Jojo P Deorocki 1 Jojo P Deorocki 05/08/2023 1 *SELF PAY* Jojo P Deorocki 1 Jojo P Deorocki 05/08/2023 1 *SELF PAY* Jojo P Deorocki 1 Jojo P Deorocki 05/08/2023 1 *SELF PAY* Jojo P Deorocki 1 Jojo P Deorocki 05/08/2023 1 *SELF PAY* Jojo P Deorocki 1 Jojo P Deorocki 05/08/2023 1 *SELF PAY* Jojo P Deorocki 1 Jojo P Deorocki 05/08/2023 1 *SELF PAY* Jojo P Deorocki 1 Jojo P Deorocki 05/08/2023 1 *SELF PAY* Jojo P Deorocki 1 Jojo P Deorocki 05/08/2023 1 *SELF PAY* Jojo P Deorocki 1 Jojo P Deorocki 05/08/2023 1 *SELF PAY* Jojo P Deorocki 1 Jojo P Deorocki 05/08/2023 1 *SELF PAY* Jojo P Deorocki 1 Jojo P Deorocki 05/08/2023 1 *SELF PAY* Jojo P Deorocki 1 Jojo P Deorocki 05/08/2023 1 *SELF PAY* Jojo P Deorocki 1 Jojo P Deorocki 05/08/2023 1 *SELF PAY* Jojo P Deorocki 1 Jojo P Deorocki 05/08/2023 1 *SELF PAY* Jojo P Deorocki 1 Jojo P Deorocki 05/08/2023 1 *SELF PAY* Jojo P Deorocki 1 Jojo P Deorocki 05/08/2023 1 *SELF PAY* Jojo P Deorocki 1 Jojo P Deorocki 05/08/2023 1 *SELF PAY* Jojo P Deorocki 1 Jojo P Deorocki 05/08/2023 1 *SELF PAY* Jojo P Deorocki 1 Jojo P Deorocki 05/08/2023 1 *SELF PAY* Jojo P Deorocki 1 Jojo P Deorocki 05/08/2023 1 *SELF PAY* Jojo P Deorocki 1 Jojo P Deorocki 05/08/2023 1 *SELF PAY* Jojo P Deorocki 1 Jojo P Deorocki 05/08/2023 1 *SELF PAY* Jojo P Deorocki 1 Jojo P Deorocki 05/08/2023 1 *SELF PAY* Jojo P Deorocki 1 Jojo P Deorocki 05/08/2023 1 *SELF PAY* Jojo P Deorocki 1 Jojo P Deorocki 05/08/2023 1 *SELF PAY* Jojo P Deorocki 1 Jojo P Deorocki 05/08/2023 1 *SELF PAY* Jojo P Deorocki 1 Jojo P Deorocki 05/08/2023 1 *SELF PAY* Jojo P Deorocki 1 Jojo P Deorocki 05/08/2023 1 *SELF PAY* Jojo P Deorocki 1 Jojo P Deorocki 05/08/2023 1 *SELF PAY* Jojo P Deorocki 1 Jojo P Deorocki 05/08/2023 1 *SELF PAY* Jojo P Deorocki 1 Jojo P Deorocki 05/08/2023 1 *SELF PAY* Jojo P Deorocki 1 Jojo P Deorocki 05/08/2023 1 *SELF PAY* Jojo P Deorocki 1 Jojo P Deorocki 05/08/2023 1 *SELF PAY* Jojo P Deorocki 1 Jojo P Deorocki 05/08/2023 1 *SELF PAY* Jojo P Deorocki 1 Jojo P Deorocki 05/08/2023 1 *SELF PAY* Jojo P Deorocki 1 Jojo P Deorocki 05/08/2023 1 *SELF PAY* Jojo P Deorocki 1 Jojo P Deorocki 05/08/2023 1 *SELF PAY* Jojo P Deorocki 1 Jojo P Deorocki 05/08/2023 1 *SELF PAY* Jojo P Deorocki 1 Jojo P Deorocki 05/08/2023 1 *SELF PAY* Jojo P Deorocki 1 Jojo P Deorocki 05/08/2023 1 *SELF PAY* Jojo P Deorocki 1 Jojo P Deorocki 05/08/2023 1 *SELF PAY* Jojo P Deorocki 1 Jojo P Deorocki 05/08/2023 1 *SELF PAY* Jojo P Deorocki 1 Jojo P Deorocki 05/08/2023 1 *SELF PAY* Jojo P Deorocki 1 Jojo P Deorocki 05/08/2023 1 *SELF PAY* Jojo P Deorocki 1 Jojo P Deorocki 05/08/2023 1 *SELF PAY* Jojo P Deorocki 1 Jojo P Deorocki 05/08/2023 1 *SELF PAY* Jojo P Deorocki 1 Jojo P Deorocki 05/08/2023 1 *SELF PAY* Jojo P Deorocki 1 Jojo P Deorocki 05/08/2023 1 *SELF PAY* Jojo P Deorocki 1 Jojo P Deorocki 05/08/2023 1 *SELF PAY* Jojo P Deorocki 1 Jojo P Deorocki 05/08/2023 1 *SELF PAY* Jojo P Deorocki 1 Jojo P Deorocki 05/08/2023 1 *SELF PAY* Jojo P Deorocki 1 Jojo P Deorocki 05/08/2023 1 *SELF PAY* Jojo P Deorocki 1 Jojo P Deorocki 05/08/2023 1 *SELF PAY* Jojo P Deorocki 1 Jojo P Deorocki 05/08/2023 1 *SELF PAY* Jojo P Deorocki 1 Jojo P Deorocki 05/08/2023 1 *SELF PAY* Jojo P Deorocki 1 Jojo P Deorocki 05/08/2023 1 *SELF PAY* Jojo P Deorocki 1 Jojo P Deorocki 05/08/2023 1 *SELF PAY* Jojo P Deorocki 1 Jojo P Deorocki 05/08/2023 1 *SELF PAY* Jojo P Deorocki 1 Jojo P Deorocki 05/08/2023 1 *SELF PAY* Jojo P Deorocki 1 Jojo P Deorocki 05/08/2023 1 *SELF PAY* Jojo P Deorocki 1 Jojo P Deorocki 05/08/2023 1 *SELF PAY* Jojo P Deorocki 1 Jojo P Deorocki 05/08/2023 1 *SELF PAY* Jojo P Deorocki 1 Jojo P Deorocki 05/08/2023 1 *SELF PAY* Jojo P Deorocki 1 Jojo P Deorocki 05/08/2023 1 *SELF PAY* Jojo P Deorocki 1 Jojo P Deorocki 05/08/2023 1 *SELF PAY* Jojo P Deorocki 1 Jojo P Deorocki 05/08/2023 1 *SELF PAY* Jojo P Deorocki 1 Jojo P Deorocki 05/08/2023 1 *SELF PAY* Jojo P Deorocki 1 Jojo P Deorocki 05/08/2023 1 *SELF PAY* Jojo P Deorocki 1 Jojo P Deorocki 05/08/2023 1 *SELF PAY* Jojo P Deorocki 1 Jojo P Deorocki 05/08/2023 1 *SELF PAY* Jojo P Deorocki 1 Jojo P Deorocki 05/08/2023 1 *SELF PAY* Jojo P Deorocki 1 Jojo P Deorocki 05/08/2023 1 *SELF PAY* Jojo P Deorocki 1 Jojo P Deorocki 05/08/2023 1 *SELF PAY* Jojo P Deorocki 1 Jojo P Deorocki 07/05/2023 1 *SELF PAY* Jojo P Deorocki 1 Jojo P Deorocki 08/08/2023 1 *SELF PAY* Jojo P Deorocki 1 Jojo P Deorocki 09/12/2023 1 *SELF PAY* Jojo P Deorocki 1 Jojo P Deorocki 09/06/2023 1 *SELF PAY* Jojo P Deorocki 1 Jojo P Deorocki 11/09/2023 1 *SELF PAY* Jojo P Deorocki 1 Jojo P Deorocki 09/12/2023 1 *SELF PAY* Jojo P Deorocki 1 Jojo P Deorocki 10/04/2023 1 *SELF PAY* Jojo P Deorocki 1 Jojo P Deorocki 12/12/2023 1 *SELF PAY* Jojo P Deorocki 1 Jojo P Deorocki 03/08/2024 1 *SELF PAY* Jojo P Deorocki 1 Jojo P Deorocki 01/07/2024 1 *SELF PAY* Jojo P Deorocki 1 Jojo P Deorocki 02/09/2024 1 *SELF PAY* Jojo P Deorocki 1 Jojo P Deorocki 07/07/2024 1 *SELF PAY* Jojo P Deorocki 1 Jojo P Deorocki 08/07/2024 1 *SELF PAY* Jojo P Deorocki 1 Jojo P Deorocki 09/09/2024 1 *SELF PAY* Jojo P Deorocki 1 Jojo P Deorocki 05/08/2023 1 *SELF PAY* Jojo Aresco 1 Jojo P Deorocki 06/08/2024 1 *SELF PAY* Jojo P Deorocki 1 Jojo P Deorocki 04/07/2024 1 *SELF PAY* Jojo P Deorocki 1 Jojo P Deorocki 05/06/2024 1 *SELF PAY* Jojo P Deorocki 1 Jojo P Deorocki 10/09/2024 1 *SELF PAY* Jojo P Deorocki 1 Jojo P Deorocki 10/09/2024 1 *SELF PAY* Jojo P Deorocki 1 Jojo P Deorocki OBGyn Episode No OBEpisode recorded.
== END 2024-11-30 14:04 | disposition home or self-care (01) ==
LOC: HO.HMCC 13:41
PROVIDERS: PCP Nurse Practitioner Family; Visit Provider Nurse Practitioner Family
DX: E55.9 Vitamin D deficiency, unspecified (principal); Z00.00 Encounter for general adult medical examination without abnormal findings; L98.9 Disorder of the skin and subcutaneous tissue, unspecified; Z12.4 Encounter for screening for malignant neoplasm of cervix

== ENCOUNTER → 2024-11-30 13:41 | Outpatient (BNVA) | payer BC, SELFPAY | PROVIDERS: PCP Nurse Practitioner Family; Visit Provider Nurse Practitioner Family | DX: Z00.00 Encounter for general adult medical examination without abnormal findings (principal); E55.9 Vitamin D deficiency, unspecified; L98.9 Disorder of the skin and subcutaneous tissue, unspecified | CPT/HCPCS: 96127 ==

== ENCOUNTER 2025-01-15 16:26 | Outpatient (REF) | payer BC, SELFPAY ==
--- NOTE | ~2025-01-15 | MM_ITS ---
EXAMINATION: MM SCREENING DIGITAL BREAST TOMOSYNTHESIS, BILATERAL CLINICAL INFORMATION: Screening. Asymptomatic. COMPARISON: No prior images found in local area hospitals. This will be considered a new baseline study. TECHNIQUE: Digital breast tomosynthesis is performed in both the craniocaudal and mediolateral oblique views along with computer-aided detection (CAD). FINDINGS: BREAST COMPOSITION: There are scattered areas of fibroglandular density (ACR BI-RADS breast composition Category b). BILATERAL BREASTS: Status post bilateral reduction mammoplasty. No significant masses, suspicious calcifications or other abnormalities are seen in either breast. MM/MM tomosynthesis screening BI IMPRESSION: BILATERAL BREASTS: Benign, no mammographic evidence of malignancy. Normal interval follow-up is recommended in 12 months. ASSESSMENT: BI-RADS 2 - Benign Findings RECOMMENDATION: Routine annual mammography screening. FOLLOW-UP: 1 year F/U This examination should not preclude the clinical evaluation of a suspicious palpable abnormality. This patient's information was entered into a reminder system with a target due date for their next mammogram. Electronically signed by: Camden Aragon MD 01/19/2025 04:07 PM EDT
== END 2025-01-15 16:27 | disposition home or self-care (01) ==
LOC: HO.MAMMO 16:26
PROVIDERS: PCP Nurse Practitioner Family; Visit Provider Nurse Practitioner Family
DX: Z12.31 Encounter for screening mammogram for malignant neoplasm of breast (principal)
CPT/HCPCS: 77063; 77067

== ENCOUNTER → 2025-01-15 16:30 | Outpatient (BNV) | payer BC, SELFPAY | PROVIDERS: PCP Nurse Practitioner Family; Visit Provider Radiology Body Imaging | DX: Z12.31 Encounter for screening mammogram for malignant neoplasm of breast (principal) | CPT/HCPCS: 77063; 77067 ==